=== PATIENT | male | born 2000 | race Caucasian/White ===

== ENCOUNTER 2021-08-14 11:29 | Day surgery (SDC) | payer OTHER ==
[2021-08-12 12:36] VITALS: BMI 22.0
[2021-08-14] MEDS ORDERED: ROPIVACAINE HCL 0.5% 30ML VIAL ONE (12:08)
[2021-08-14] MEDS ORDERED: MIDAZOLAM HCL 2 MG/2 ML SINGLE DOSE VIAL ONE (12:08)
[2021-08-14] MEDS ORDERED: PROPOFOL 20 ML ONE ×2 (12:53)
[2021-08-14 15:43] VITALS: TEMP 97.9
[2021-08-14 15:46] VITALS: BP 126/74; PULSE 85
== END 2021-08-14 15:55 | disposition home or self-care (01) ==
LOC: FASU 11:29
PROVIDERS: ATTEND Orthopaedic Surgery Hand Surgery
PROC: 0PUM07Z Supplement Right Carpal with Autologous Tissue Substitute, Open Approach (ICD-10-PCS; 2021-08-14)
PROC: 0PHM04Z Insertion of Internal Fixation Device into Right Carpal, Open Approach (ICD-10-PCS; principal; 2021-08-14 13:21)
DX: S62.001K Unspecified fracture of navicular [scaphoid] bone of right wrist, subsequent encounter for fracture with nonunion (principal)
CPT/HCPCS: 73110-TC-RT-FY